=== PATIENT | female | born 1960 | race Caucasian/White ===

== ENCOUNTER 2017-10-26 14:55 | Inpatient (IN) | payer MEDICARE, OTHER ==
[~2017-10-26] VITALS: Ht 170.2 cm; Wt 96.3 kg
[2017-10-26] MEDS ORDERED: fentaNYL/PF 50MCG/1 ML 2ML syringe IV ONE ×2 (15:05→15:40)
[2017-10-26] MEDS ORDERED: etomidate 2mg/ml inj. IV ONE (15:05)
[2017-10-26] MEDS ORDERED: heparin 10,000 units/1 ML INJ IV ONE (15:05)
[2017-10-26] MEDS ORDERED: ondansetron/PF 4mg/2ml inj IV ONE ×2 (15:05→15:40)
[2017-10-26] MEDS ORDERED: aspirin 81mg tab.chew PO ONE (15:05)
[2017-10-26 15:20] LABS: RED BLOOD COUNT 4.65 X10'6 (4.20-5.60); WHITE BLOOD COUNT 9.4 X10'3 (4.5-11.0)
[2017-10-26 15:21] LABS: BASOPHILS # (AUTO) 0.1 X10'3 (0-0.2); BASOPHILS % (AUTO) 0.6 % (0-1); EOSINOPHILS # (AUTO) 0.4 X10'3 (0-0.9); EOSINOPHILS % (AUTO) 4.6 % (0-6); HEMATOCRIT 43.2 % (35.0-45.0); LYMPHOCYTES # (AUTO) 3.5 X10'3 (1.1-4.8); LYMPHOCYTES % (AUTO) 37.5 % (21-51); MEAN CORPUSCULAR HEMOGLOBIN 32.2 PG (27.0-31.0); MEAN CORPUSCULAR HGB CONC 34.7 % (33.0-36.5); MEAN PLATELET VOLUME 7.6 FL (7.4-10.4); MONOCYTES # (AUTO) 0.6 X10'3 (0-0.9); NEUTROPHILS # (AUTO) 4.8 X10'3 (1.8-7.7); NEUTROPHILS % (AUTO) 51.3 % (42-75); PLATELET COUNT 281 X10'3 (140-440); RED CELL DISTRIBUTION WIDTH 12.6 % (11.5-14.5)
[2017-10-26 15:37] LABS: ALANINE AMINOTRANSFERASE 68 U/L (12-78); ALBUMIN/GLOBULIN RATIO 1.2 (1.1-1.5); ALKALINE PHOSPHATASE 82 IU/L (46-116); ANION GAP 16 (8-16); ASPARTATE AMINO TRANSFERASE 36 U/L (10-37); BILIRUBIN,TOTAL 0.7 MG/DL (0.1-1.0); BLOOD UREA NITROGEN 11 MG/DL (7-18); BUN/CREATININE RATIO 12.5 (6.6-38.0); CALCIUM 9.2 MG/DL (8.5-10.1); CHLORIDE 108 MMOL/L (99-107); CREATININE 0.88 MG/DL (0.40-0.90); GLUCOSE 93 MG/DL (70-104); POTASSIUM 3.1 MMOL/L (3.5-5.1); SODIUM 144 MMOL/L (135-145); TOTAL CARBON DIOXIDE 20.2 MMOL/L (24-32); TOTAL PROTEIN 7.3 G/DL (6.4-8.2); eGFR 66 ML/MIN
[2017-10-26] MEDS ORDERED: amiodarone 150mg/dext, iso-os 100 ML IV ONE (15:40)
[2017-10-26 15:41] LABS: D-DIMER 0.88 MG/L FEU (0-0.50)
[2017-10-26 15:44] LABS: MAGNESIUM 2.3 MG/DL (1.5-2.4)
[2017-10-26 15:46] LABS: INR 0.9 INR; PARTIAL THROMBOPLASTIN TIME 22 SECONDS (22-32); PROTHROMBIN TIME 9.7 SECONDS (9.0-12.0)
[2017-10-26] MEDS ORDERED: iohexol 350MG/ML 100ml bottle IV ONE (16:01)
[2017-10-26] MEDS ORDERED: normal saline 1000ml 1,000 ML IV ONE (16:10)
[2017-10-26] MEDS ORDERED: magnesium 2GM in 50ml NS 50 ML IV PRN (16:55)
[2017-10-26] MEDS ORDERED: potassium Cl 20 mEq SR tablet PO PRN ×4 (16:55→20:25)
[2017-10-26] MEDS ORDERED: magnesium Cl slow-release 64mg tablet PO PRN (16:55)
[2017-10-26] MEDS ORDERED: magnesium hydroxide 30ml (MOM) UD suspension PO PRN (16:55)
[2017-10-26] MEDS ORDERED: ondansetron/PF 4mg/2ml inj IV PRN (16:55)
[2017-10-26] MEDS ORDERED: HYDROcodone/acetaminophen 10/325mg tab PO PRN (16:55)
[2017-10-26] MEDS ORDERED: HYDROcodone/acetaminophen 5mg/325mg tablet PO PRN (16:55)
[2017-10-26] MEDS ORDERED: potassium Cl 40MEQ/NS 500ml 500 ML IV PRN ×4 (16:55→20:25)
[2017-10-26] MEDS ORDERED: mag hydrox/Alum hydrox/simeth 30ml oral suspension PO PRN ×2 (16:55→20:20)
[2017-10-26] MEDS ORDERED: magnesium 4gm in 100ml NS 100 ML IV PRN (16:55)
[2017-10-26] MEDS ORDERED: acetaminophen 325mg tablet PO PRN ×2 (16:55)
[2017-10-26] MEDS: normal saline 1000ml 1,000 ML IV SCH (17:50)
[2017-10-26] MEDS ORDERED: ESCI10TA PO (18:15)
[2017-10-26 19:30] VITALS: BP 146/70
[2017-10-26] MEDS ORDERED: cloNIDine 0.1 mg tablet PO PRN (20:20)
[2017-10-26] MEDS ORDERED: LORazepam 1 MG tablet PO PRN (20:20)
[2017-10-26] MEDS ORDERED: thiamine inj. 100 MG in normal saline 100ml IV soln 100 ML IV ONE (20:20)
[2017-10-26] MEDS ORDERED: folic acid inj. 2 MG, thiamine inj. 100 MG, MVI, adult No.4 with vit. K 10 ML in dextro... IV SCH ×4 (20:20)
[2017-10-26] MEDS ORDERED: cyclobenzaprine 10mg tablet PO PRN (20:20)
[2017-10-26] MEDS ORDERED: loperamide 2mg capsule PO PRN (20:20)
[2017-10-26] MEDS: K and/or MAG REPLACEMENT MC SCH (20:25)
[2017-10-26] MEDS ORDERED: thiamine 100mg/ml 2ml inj. IV ONE (21:20)
[2017-10-26 23:00] VITALS: BP 154/77
[2017-10-27] MEDS: normal saline 1000ml 1,000 ML IV SCH ×2 (02:51→12:51)
[2017-10-27 03:00] VITALS: BP 128/61
[2017-10-27 03:35] LABS: ALANINE AMINOTRANSFERASE 46 U/L (12-78); ALBUMIN 3.2 G/DL (3.4-5.0); ALBUMIN/GLOBULIN RATIO 1.1 (1.1-1.5); ALKALINE PHOSPHATASE 77 IU/L (46-116); AMYLASE 74 U/L (25-115); ANION GAP 11 (8-16); ASPARTATE AMINO TRANSFERASE 34 U/L (10-37); BILIRUBIN,TOTAL 0.6 MG/DL (0.1-1.0); CALCIUM 8.3 MG/DL (8.5-10.1); CHLORIDE 108 MMOL/L (99-107); CREATININE 0.88 MG/DL (0.40-0.90); GLUCOSE 108 MG/DL (70-104); LIPASE 141 U/L (73-393); MAGNESIUM 1.7 MG/DL (1.5-2.4); POTASSIUM 4.4 MMOL/L (3.5-5.1); SODIUM 141 MMOL/L (135-145); TOTAL CARBON DIOXIDE 22.4 MMOL/L (24-32); eGFR 66 ML/MIN
[2017-10-27 03:37] LABS: BLOOD UREA NITROGEN 17 MG/DL (7-18); BUN/CREATININE RATIO 19.3 (6.6-38.0)
[2017-10-27 05:49] LABS: BASOPHILS # (AUTO) 0.1 X10'3 (0-0.2); BASOPHILS % (AUTO) 0.6 % (0-1); EOSINOPHILS # (AUTO) 0.4 X10'3 (0-0.9); EOSINOPHILS % (AUTO) 4.5 % (0-6); HEMATOCRIT 35.4 % (35.0-45.0); LYMPHOCYTES # (AUTO) 2.9 X10'3 (1.1-4.8); LYMPHOCYTES % (AUTO) 32.2 % (21-51); MEAN CORPUSCULAR HGB CONC 33.9 % (33.0-36.5); MEAN CORPUSCULAR VOLUME 94.2 FL (78-98); MEAN PLATELET VOLUME 7.9 FL (7.4-10.4); MONOCYTES # (AUTO) 0.6 X10'3 (0-0.9); MONOCYTES % (AUTO) 6.4 % (2-12); NEUTROPHILS # (AUTO) 5.1 X10'3 (1.8-7.7); NEUTROPHILS % (AUTO) 56.3 % (42-75); PLATELET COUNT 217 X10'3 (140-440); RED BLOOD COUNT 3.75 X10'6 (4.20-5.60); RED CELL DISTRIBUTION WIDTH 13.1 % (11.5-14.5)
[2017-10-27 06:00] VITALS: BP 178/64
[2017-10-27] MEDS: K and/or MAG REPLACEMENT MC SCH (08:00)
[2017-10-27] MEDS ORDERED: K and/or MAG REPLACEMENT MC SCH (08:00)
[2017-10-27] MEDS ORDERED: enoxaparin 40mg/0.4ml syringe SUBCUT SCH (08:00)
[2017-10-27] MEDS ORDERED: enoxaparin 40mg/0.4ml syringe SQ SCH (08:00)
[2017-10-27] MEDS ORDERED: multivitamins, therapeutics tablet PO SCH (08:44)
[2017-10-27] MEDS ORDERED: folic acid 1mg tablet PO SCH (08:44)
[2017-10-27] MEDS ORDERED: thiamine 100mg tablet PO SCH (08:45)
[2017-10-27 11:00] VITALS: BP 93/60
[2017-10-27] MEDS ORDERED: citalopram 20mg tablet PO SCH (11:17)
[2017-10-27] MEDS ORDERED: LEVO25TA7 PO (16:42)
== END 2017-10-27 17:25 | disposition home or self-care (01) | DRG 309 ==
LOC: ER 15:03 → ED HOLD 17:04 → PCU 3S 19:15
PROVIDERS: ADMIT Nurse Practitioner Family; ATTEND Internal Medicine Interventional Cardiology
PROC: 5A2204Z Restoration of Cardiac Rhythm, Single (ICD-10-PCS; principal; 2017-10-26)
PROC: B32T1ZZ Computerized Tomography (CT Scan) of Left Pulmonary Artery using Low Osmolar Contrast (ICD-10-PCS; 2017-10-26)
PROC: B3201ZZ Computerized Tomography (CT Scan) of Thoracic Aorta using Low Osmolar Contrast (ICD-10-PCS; 2017-10-26)
PROC: B32S1ZZ Computerized Tomography (CT Scan) of Right Pulmonary Artery using Low Osmolar Contrast (ICD-10-PCS; 2017-10-26)
PROC: BF2 Imaging, Hepatobiliary System and Pancreas, Computerized Tomography (CT Scan) (ICD-10-PCS; 2017-10-26)
PROC: BB241ZZ Computerized Tomography (CT Scan) of Bilateral Lungs using Low Osmolar Contrast (ICD-10-PCS; 2017-10-26)
DX: I48.91 Unspecified atrial fibrillation (principal); I24.9 Acute ischemic heart disease, unspecified; R55 Syncope and collapse; E03.9 Hypothyroidism, unspecified; F10.10 Alcohol abuse, uncomplicated; F41.9 Anxiety disorder, unspecified; R79.1 Abnormal coagulation profile; I25.2 Old myocardial infarction; Z79.899 Other long term (current) drug therapy; Z88.0 Allergy status to penicillin; Z91.018 Allergy to other foods; Z71.41 Alcohol abuse counseling and surveillance of alcoholic
CPT/HCPCS: 36415; 70450; 71010; 71275; 80053; 82150; 83690; 83735; 83880; 84100; 84439; 84443; 84484; 85025; 85379; 85610; 85730; 87070; 92960; 93005; 93306; 93880; 96374; 96375; 97116; 97162; 97530; 99291; J0282; J1644; J1650; J2405; J3010; J3411; J3490; J7030; J7060; Q9967